=== PATIENT | male | born 1960 | race Caucasian/White ===

== ENCOUNTER 2017-01-17 09:57 | Emergency (ER) | payer BC ==
[~2017-01-17] VITALS: Ht 165.1 cm; Wt 85.3 kg
[~2017-01-17 09:57] MED LIST: ATIVAN1 MG ORAL; ATIVAN2 MG ORAL; BENTYL10 MG ORAL; COLACE100 MG ORAL; FLOMAX0.4 MG ORAL; IBUPROFEN600 MG ORAL; LOMOTIL TABLET1 EACH ORAL; NITROFURANTOIN100 M2 ORAL; NORCO1 E1 ORAL; PHENERGAN SUPP25 MG RECTAL; SILVADENE20 GM TP; ZOFRAN ODT4 MG ORAL; ZOFRAN4 M1 ORAL
[2017-01-17 10:06] VITALS: BP 160/114
[2017-01-17] MEDS ORDERED: Ketorolac 60mg Inj IM ONE (10:15)
[2017-01-17] MEDS ORDERED: Cyclobenzaprine 10mg Tab ORAL ONE (10:15)
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
[2017-01-17] MEDS ORDERED: TRAMADOL HCL50 MG ORAL (11:45)
[2017-01-17] MEDS ORDERED: GABAPENTIN100 MG ORAL (11:45)
[2017-01-17] MEDS ORDERED: LIDODERM700 M1 TOPIC (11:45)
[2017-01-17] MEDS ORDERED: CYCLOBENZAPRINE10 MG ORAL (11:46)
[2017-01-17 11:53] VITALS: BP 159/100
[2017-01-17 11:56] VITALS: BP 159/100
== END 2017-01-17 11:57 | disposition home or self-care (01) ==
LOC: EMR 10:13
DX: M54.42 Lumbago with sciatica, left side (principal); M62.830 Muscle spasm of back; I10 Essential (primary) hypertension; F41.9 Anxiety disorder, unspecified; Z88.0 Allergy status to penicillin; Z88.1 Allergy status to other antibiotic agents
CPT/HCPCS: 96372; 99283

== ENCOUNTER 2017-01-21 02:00 | Emergency (ER) | payer BC ==
[~2017-01-21] VITALS: Ht 165.1 cm; Wt 72.6 kg
[~2017-01-21 02:00] MED LIST changes: +CYCLOBENZAPRINE10 MG ORAL; +GABAPENTIN100 MG ORAL; +LIDODERM700 M1 TOPIC; +TRAMADOL HCL50 MG ORAL
[2017-01-21 02:10] VITALS: BP 135/74
[2017-01-21] MEDS ORDERED: LORazepam Inj 2mg/ml 1ml ONE (02:15)
[2017-01-21] MEDS ORDERED: LORazepam Inj 2mg/ml 1ml IV ONE (02:15)
[2017-01-21 02:29] LABS: BASOPHILS % (AUTO) 0.6 % (0.0-2.0); EOSINOPHILS % (AUTO) 0.5 % (0.0-3.0); LYMPHOCYTES % (AUTO) 35.4 % (20.0-45.0); MEAN CORPUSCULAR HEMOGLOBIN 30.9 PG (27.0-31.0); MEAN CORPUSCULAR HGB CONC 33.9 G/DL (32.0-36.0); MEAN CORPUSCULAR VOLUME 91 FL (80-99); MEAN PLATELET VOLUME 6.2 FL (6.5-10.1); MONOCYTES % (AUTO) 7.5 % (1.0-10.0); PLATELET COUNT 246 K/UL (150-450); RED BLOOD COUNT 5.64 M/UL (4.70-6.10); RED CELL DISTRIBUTION WIDTH 11.8 % (11.6-14.8); WHITE BLOOD COUNT 9.4 K/UL (4.8-10.8)
[2017-01-21 02:44] LABS: ACETAMINOPHEN < 10 ug/mL (10-30); ALANINE AMINOTRANSFERASE 34 U/L (3-41); ALBUMIN/GLOBULIN RATIO 1.2 (1.0-2.7); ALCOHOL 382 mg/dL; ANION GAP 26 (5-15); ASPARTATE AMINO TRANSFERASE 39 U/L (5-40); CALCIUM 8.5 mg/dL (8.6-10.2); CARBON DIOXIDE 17 mEQ/L (20-30); CHLORIDE 100 mEQ/L (98-107); GLOMERULAR FILTRATION RATE > 60 mL/min (>60); HEMOLYSIS 5; POTASSIUM 3.8 mEQ/L (3.4-4.9); SODIUM 143 mEQ/L (135-145); TOTAL PROTEIN 8.2 g/dL (6.6-8.7)
[2017-01-21 02:54] LABS: CKMB 2.4 ng/mL (< 6.7)
[2017-01-21 03:20] LABS: TROPONIN I < 0.30 ng/mL (<=0.30)
--- NOTE | 2017-01-21 03:39 | Emergency Room Report ---
History of Present Illness General Chief Complaint: Alcohol Intoxication Source: Patient, EMS Present Illness HPI 56-year-old male presents ED for evaluation. Per EMS patient was drinking alcohol tonight and call 911. Patient was complaining of shortness of breath. Patient was vomiting and appeared tremulous. No chest pain. No fevers or chills. No other aggravating relieving factors. Denies any other associated symptoms Allergies: Coded Allergies: CLINDAMYCIN (Verified Allergy, Unknown, 05/13/11) PENICILLINS (Verified Allergy, Unknown, 12/19/14) since a little boy Patient History Past Medical History: none Past Surgical History: none Pertinent Family History: none Social History: Reports: alcohol use, Denies: drug use, smoking Immunizations: UTD Reviewed Nursing Documentation: PMH: Agreed, PSxH: Agreed Nursing Documentation-PMH Hx Cardiac Problems: No Hx Hypertension: No Hx Pacemaker: No Hx Asthma: No Hx COPD: No Hx Diabetes: No Hx Cancer: No Hx Gastrointestinal Problems: Yes - ETOH ABUSE Hx Cerebrovascular Accident: No Hx Seizures: No Review of Systems All Other Systems: negative except mentioned in HPI Physical Exam Vital Signs Date Time Temp Pulse Resp B/P Pulse Ox O2 Delivery O2 Flow Rate FiO2 01/21/17 02:01 97.0 96 18 130/70 98 Room Air Sp02 EP Interpretation: reviewed, normal General Appearance: GCS 15, non-toxic, other - intoxicated Head: normocephalic Eyes: bilateral eye PERRL, bilateral eye normal inspection ENT: normal ENT inspection Neck: normal inspection Respiratory: chest non-tender, lungs clear, normal breath sounds, speaking full sentences Cardiovascular #1: tachycardia Gastrointestinal: normal bowel sounds, non tender, soft, non-distended, no guarding, no rebound Rectal: deferred Genitourinary: no CVA tenderness Musculoskeletal: normal inspection Neurologic: other - intoxicated Psychiatric: other - intoxicated Skin: normal inspection Lymphatic: normal inspection Medical Decision Making Diagnostic Impression: Primary Impression: Acute alcoholic intoxication Qualified Codes: F10.929 - Alcohol use, unspecified with intoxication, unspecified Additional Impression: Seizure ER Course Hospital Course 56-year-old M presents to ED with altered mental status. tremulous. +ETOH Differential diagnoses include: Psychosis, EtOH, drug abuse Clinical course patient placed on stretcher. On monitoring tech. On assessment patient had a seizure witnessed by myself and nursing staff Patient given Ativan After initial history and physical ordered labs, IV fluids, EKG, CT brain. Labs reviewed-electrolytes okay, no leukocytosis, hemoglobin/hematocrit stable, ETOH > 300 EKG-sinus tachycardia no acute changes interpreted by me CT brain shows no acute pathology Patient allowed to rest. Initially tachycardic which improved with IV fluids. Patient is now awake alert oriented x3, ambulating i. I feel this is a highly complex case requiring extensive working including EKG/Rhythm strip, Xray/CT/US, Blood/urine lab work, repeat exams while in ED, and administration of strong opiates/narcotics for pain control, admission to hospital or close patient follow up. Diagnosis - alcohol intoxication, seizure Stable and discharged to home. Followup with PMD. Return to ED if symptoms recur or worsen Labs Test 01/21/17 02:20 01/21/17 02:50 White Blood Count 9.4 K/UL (4.8-10.8) Red Blood Count 5.64 M/UL (4.70-6.10) Hemoglobin 17.4 G/DL (14.2-18.0) Hematocrit 51.4 % (42.0-52.0) Mean Corpuscular Volume 91 FL (80-99) Mean Corpuscular Hemoglobin 30.9 PG (27.0-31.0) Mean Corpuscular Hemoglobin Concent 33.9 G/DL (32.0-36.0) Red Cell Distribution Width 11.8 % (11.6-14.8) Platelet Count 246 K/UL (150-450) Mean Platelet Volume 6.2 FL (6.5-10.1) Neutrophils (%) (Auto) 56.0 % (45.0-75.0) Lymphocytes (%) (Auto) 35.4 % (20.0-45.0) Monocytes (%) (Auto) 7.5 % (1.0-10.0) Eosinophils (%) (Auto) 0.5 % (0.0-3.0) Basophils (%) (Auto) 0.6 % (0.0-2.0) Sodium Level 143 mEQ/L (135-145) Potassium Level 3.8 mEQ/L (3.4-4.9) Chloride Level 100 mEQ/L (98-107) Carbon Dioxide Level 17 mEQ/L (20-30) Anion Gap 26 (5-15) Blood Urea Nitrogen 13 mg/dL (7-23) Creatinine 1.0 mg/dL (0.7-1.2) Estimat Glomerular Filtration Rate > 60 mL/min (>60) Glucose Level 118 mg/dL (74-106) Calcium Level 8.5 mg/dL (8.6-10.2) Total Bilirubin 0.4 mg/dL (0.0-1.2) Aspartate Amino Transf (AST/SGOT) 39 U/L (5-40) Alanine Aminotransferase (ALT/SGPT) 34 U/L (3-41) Alkaline Phosphatase 111 U/L (40-129) Total Creatine Kinase 197 U/L (38-174) Creatine Kinase MB 2.4 ng/mL (< 6.7) Creatine Kinase MB Relative Index 1.2 Troponin I < 0.30 ng/mL (<=0.30) Total Protein 8.2 g/dL (6.6-8.7) Albumin 4.6 g/dL (3.5-5.2) Globulin 3.6 g/dL Albumin/Globulin Ratio 1.2 (1.0-2.7) Salicylates Level < 1 mg/dL (10-30) Acetaminophen Level < 10 ug/mL (10-30) Serum Alcohol 382 mg/dL Urine Opiates Screen Negative (NEGATIVE) Urine Barbiturates Screen Negative (NEGATIVE) Phencyclidine (PCP) Screen Negative (NEGATIVE) Urine Amphetamines Screen Negative (NEGATIVE) Urine Benzodiazepines Screen Negative (NEGATIVE) Urine Cocaine Screen Negative (NEGATIVE) Urine Marijuana (THC) Screen Positive (NEGATIVE) EKG Diagnostic Results Rate: tachycardiac Rhythm: NSR ST Segments: no acute changes ASA given to the pt in ED: No Rhythm Strip Diag. Results EP Interpretation: yes Rhythm: NSR, no PVC's, no ectopy Chest X-Ray Diagnostic Results Chest X-Ray Diagnostic Results : Chest X-Ray Ordered: Yes # of Views/Limited/Complete: 1 View Indication: Shortness of Breath EP Interpretation: Yes Interpretation: no consolidation, no effusion, no pneumothorax, no acute cardiopulmonary disease Impression: No acute disease Interpreting ER Provider: Electronically signed by Rubén Martinez MD CT/MRI/US Diagnostic Results CT/MRI/US Diagnostic Results : Imaging Test Ordered: CT Head Impression no acute process Last Vital Signs Date Time Temp Pulse Resp B/P Pulse Ox O2 Delivery O2 Flow Rate FiO2 01/21/17 02:10 98.4 112 19 135/74 99 Room Air Status: improved Disposition: HOME, SELF-CARE Condition: Stable Referrals: NON PHYSICIAN (PCP) RUBÉN MARTINEZ M.D. Jan 21, 2017 03:39
[2017-01-21 04:01] VITALS: BP 140/76
[2017-01-21 06:05] VITALS: BP 145/74
[2017-01-21 06:38] VITALS: BP 131/91
[2017-01-21 09:19] VITALS: BP 156/91
[2017-01-21 09:22] VITALS: BP 131/91
--- NOTE | 2017-01-21 09:55 | Diagnostic Imaging Report ---
Indication: Altered mental status Technique: Contiguous 5 mm thick transaxial imaging of the head obtained in a Siemens Sensation [address] scanner. Soft tissue and bone windows generated. Total Dose length Product (DLP): [address] Dose Index Volume (CTDIvol): 70.38 mGy Comparison: none Findings: There is mild prominence of the ventricles, basal cisterns, and cerebral sulci consistent with atrophy. Mild, nonspecific, white matter hypoattenuation is noted throughout the brain consistent with chronic small vessel disease. The pineal gland is heavily calcified and prominent measuring 1.4 cm.. There is no midline shift, edema, acute hemorrhage, mass effect, or abnormal extra-axial fluid collections. Bones and extra osseous soft tissues are unremarkable. Impression: No acute intracranial bleed, mass effect or edema. Mild atrophy of the brain. Nonspecific white matter hypoattenuation probably due to chronic small vessel disease. Prominent calcified pineal gland The CT scanner at [facility] is accredited by the [employer] and the scans are performed using dose optimization techniques as appropriate to a performed exam including Automatic Exposure control.
--- NOTE | 2017-01-21 11:32 | Diagnostic Imaging Report ---
Indication: Dyspnea Comparison: None A single view chest radiograph was obtained. Findings: Lungs are clear. The heart is not enlarged. Bones are slightly osteopenic. Impression: No acute disease
--- NOTE | 2017-01-22 17:44 | Cardiology Report ---
APPROVED REPORT EKG Measurement Heart [id number] N[address] and T wave abnormality Abnormal ECG
== END 2017-01-21 09:24 | disposition home or self-care (01) ==
LOC: EDBD 02:00 → EDUNIT# 02:00 → EMR 02:21
DX: F10.929 Alcohol use, unspecified with intoxication, unspecified (principal); R56.9 Unspecified convulsions; Z88.1 Allergy status to other antibiotic agents; Z88.0 Allergy status to penicillin; R00.0 Tachycardia, unspecified; R06.02 Shortness of breath
CPT/HCPCS: 36415; 70450; 71010; 80053; 80300; 82550; 82553; 84484; 85025; 93005; 96360; 96361; 96374; 96375; 99284; G0480; J2405; 80329